=== PATIENT | male | born 1965 | race Caucasian/White ===

== ENCOUNTER 2017-05-02 16:36 | Emergency (ER) | payer MEDICAID ==
[~2017-05-02] VITALS: Ht 160 cm; Wt 85.8 kg
[~2017-05-02 16:36] MED LIST: ACET-2619 PO; LEVO500T6 PO; TRAM50TA1 PO
[2017-05-02 16:58] VITALS: BP 151/104
--- NOTE | 2017-05-02 16:59 | NUR ---
PT AMBULATES TO CHAIR D
--- NOTE | 2017-05-02 17:12 | NUR ---
C/O LT ARM PAIN 3/10 WITH DISCOLORATION X 4 DAYS; DENIES INJURY. DENIES N/V/D; SKIN IS PINK/WARM/DRY; AAOX4 WITH EVEN AND STEADY GAIT; LUNGS CLEAR BL; HR EVEN AND REGULAR; PT DENIES ANY FEVER, CP, SOB, OR COUGH AT THIS TIME; ER MD MADE AWARE OF PT STATUS.
[2017-05-02 17:49] VITALS: BP 140/80
--- NOTE | 2017-05-02 17:49 | NUR ---
Patient discharged with v/s stable. Written and verbal after care instructions given and explained. Patient verbalized understanding. Ambulatory with steady gait. All questions addressed prior to discharge. Advised to follow up with PMD.
== END 2017-05-02 17:49 | disposition home or self-care (01) ==
LOC: MED 16:36
DX: S50.02XA Contusion of left elbow, initial encounter (principal); Z90.49 Acquired absence of other specified parts of digestive tract; X58.XXXA Exposure to other specified factors, initial encounter; Y93.89 Activity, other specified; Y92.89 Other specified places as the place of occurrence of the external cause; Y99.8 Other external cause status
CPT/HCPCS: 99281